=== PATIENT | female | born 1975 | race African-American/Black ===

== ENCOUNTER → 2019-08-07 09:01 | Outpatient (CLI) | payer BC, SELFPAY ==
--- NOTE | ~2019-08-07 | XR_ITS ---
EXAMINATION: XR chest 2V EXAM DATE: 08/07/2019 09:24 INDICATION: Left breast pain. TECHNIQUE: Frontal and lateral projections of the chest obtained and reviewed. There is no prior soniya dy for comparison. FINDINGS: The lungs are clear. There are no pleural effusions. The cardiomediastinal silhouette is within normal limits. There is no pneumothorax suspected. The bones and soft tissues are unremarkab le. IMPRESSION: No acute cardiopulmonary findings. Reviewed, dictated and finalized at location B. [employer]
== END ==
PROVIDERS: PCP Emergency Medicine; Visit Provider Emergency Medicine
DX: N64.4 Mastodynia (principal)
CPT/HCPCS: 71046

== ENCOUNTER 2020-10-03 08:29 | Outpatient (CLI) | payer BC, SELFPAY ==
--- NOTE | ~2020-10-03 | MM_ITS ---
EXAMINATION: MM screening [facility] BI w som HISTORY: Screening mammogram TECHNIQUE: Craniocaudal and mediolateral oblique 3-D tomosynthesis images were obtained and synthetic 2-D images were generated. CAD analysis was submitted and interpreted. COMPARISON: 07/17/2019, 02/10/2018, 01/30/2018 BREAST PARENCHYMAL COMPOSITION: There are scattered areas of fibroglandular density. FINDINGS: There are bilateral breast cysts with a waxing and waning appearance. There is no evidence of suspicious mass, calcification, or architectural distortion to suggest malignancy in either breast . There has been no suspicious interval change. IMPRESSION: 1. No mammographic evidence of malignancy. 2. Recommend routine screening mammography in one year. BI-RADS Category 2: Benign finding(s). Reviewed, dictated and finalized at location A.
== END 2020-10-03 08:30 | disposition home or self-care (01) ==
LOC: ANHIMG 08:33
PROVIDERS: PCP Emergency Medicine; Visit Provider Emergency Medicine
DX: Z12.31 Encounter for screening mammogram for malignant neoplasm of breast (principal)
CPT/HCPCS: 77063; 77067

== ENCOUNTER 2022-10-07 10:53 | Outpatient (CLI) | payer OTHER, SELFPAY ==
--- NOTE | ~2022-10-07 | XR_ITS ---
AP and lateral views of the right hip Clinical history: Pain Findings: No acute fracture or dislocation is seen. Osseous alignment is anatomic. The right hip join t and right SI joint are preserved. Soft tissues are unremarkable. Impression: No significant abnormality is seen. Reviewed, dictated and finalized at [facility]. Impression: No significant abnormality is seen.
--- NOTE | ~2022-10-07 | XR_ITS ---
Right Shoulder Technique: AP and axillary views were obtained. Clinical History: Pain Findings: No fracture or dislocation is seen. Osseous alignment is anatomic. The glenohumeral and acr omioclavicular joint spaces are preserved. Soft tissues are unremarkable. Impression: Unremarkable right shoulder radiographs. Reviewed, dictated and finalized at [facility]. Impression: Unremarkable right shoulder radiographs.
== END 2022-10-07 10:54 | disposition home or self-care (01) ==
LOC: ANHIMG 11:01
PROVIDERS: PCP Physician Assistant; Visit Provider Physician Assistant
DX: M25.551 Pain in right hip (principal); M25.511 Pain in right shoulder
CPT/HCPCS: 73030; 73502

== ENCOUNTER 2024-02-05 13:22 | Emergency (ER) | payer OTHER, SELFPAY ==
[2024-02-05] VITALS (10 sets, daily range): BP systolic 98–108; BP diastolic 67–76; PULSE 62–100; RESP 17–18; TEMP 38.2; O2SAT 98–100
--- NOTE | ~2024-02-05 | CT_ITS ---
CT abdomen pelvis w con Ordering provider: Carmelo Newell APRN History: 48 years Female with . abdomen pain /nausea/fever . Comparison: None. Technique: CT abdomen and pelvis with IV and without oral contrast. Automated exposure control and it erative reconstruction technique were employed. The dose-length product was 882.50 mGy-cm. 100 ML Omn ipaque 350 was given IV. Findings: VISUALIZED LOWER CHEST: Normal. UPPER ABDOMINAL ORGANS: Liver: Mild fat infiltration. Gallbladder: Normal. Spleen: Normal. Stomach/duodenum: Normal. Pancreas: Normal. Adrenals: Normal. Kidneys: Small cyst in the right kidney midpole. PELVIC ORGANS: The bladder is underfilled with thickened wall. Grossly enlarged uterus is seen. Fibro id is highly suggestive. Further evaluation and clinical correlation uterus measures 1.1 x 1.1x 12 cm . advised. BOWEL AND MESENTERY: Colon: No evidence of diverticulitis. No evidence of appendicitis.. Small Bowel: Normal. No obstruction. Peritoneum/mesentery: No free air or free fluid. No mesenteric lymphadenopathy. RETROPERITONEUM: Normal aorta. No retroperitoneal lymphadenopathy. MUSCULOSKELETAL: Superficial soft tissues: The superficial soft tissues are normal. Bones: Age appropriate degenerative changes of the spine. IMPRESSION: 1. No acute abdominal process with no evidence of appendicitis, diverticulitis or intestinal obstruc tion. 2. Grossly enlarged uterus with fibroid. Further evaluation and clinical correlation advised. Reviewed, dictated and finalized at location A. IMPRESSION: 1. No acute abdominal process with no evidence of appendicitis, diverticulitis or intestinal obstruction. 2. Grossly enlarged uterus with fibroid. Further evaluation and clinical corre lation advised.
--- NOTE | 2024-02-05 14:05 | ED.DIZZY ---
HPI - Dizziness General Chief Complaint: Dizziness Stated Complaint: abd pain Time Seen by Provider: 02/05/24 14:04 Source: patient Mode of arrival: ambulatory Limitations: no limitations History of Present Illness HPI Narrative: Cady is a 48-year-old female patient presenting to the ER today with complaints of generalized abdominal discomfort, weakness, fever, chills, body aches and dizziness for the past 3 days. She reports her pain being an 8/10 currently. She denies any URI symptoms or UTI symptoms. Her last bowel movement was 2 days ago. Is having some associated nausea. Took ibuprofen at 12:00 p.m. today. Denies any headache or blurry vision. Related Data Allergies Allergy/AdvReac Type Severity Reaction Status Date / Time No Known Allergies Allergy Verified 02/05/24 13:58 Review of Systems Review of Systems: Pertinent positives per HPI. Patient denies any rash, headache, visual changes, cough, runny nose, sore throat, shortness of breath, chest pain, palpitations, vomiting, diarrhea, constipation, or any urinary issues. PMFSH Family History Family History Unknown Hypertension Social History Social History Smoking status: Never smoker Alcohol intake: never Substance use type: does not use Living arrangements: with family Occupation/Education: occupation Additional occupation/education comments: Home/[employer] Gender identity (if verbalized by the patient): Female Comments At the time of my signature, I reviewed and agree with the nursing past medical, surgical, social, and family history. There is no relevant family history pertinent to the patient complaint. Exam Narrative: General: Well-developed, well nourished, in no apparent distress. Head: Normocephalic, atraumatic. Cardio: Regular rate and rhythm, s1 and s2 normal, no murmur appreciated. Resp: Clear to auscultation bilaterally, no rhonchi, rales, wheezing or rubs. Abdomen: Soft, pliable, bowel sounds present in all quadrants, non-tender to palpation, no organomegly, no CVAT tenderness. Musculoskeletal: No deformity, non-tender to palpation, grossly normal range of motion, muscle strength strong and equal, peripheral pulse strong, no edema, no cyanosis, normal gait and station Neuro: Alert and oriented x4 with normal speech, no focal deficits, cranial nerves I through XII intact, muscle strength 5 out of 5, sensation intact bilaterally. Course Course Emergency Course: Portions of this record may have been created with voice recognition software. Vital Signs Vital signs: Vital Signs Temperature 38.2 C H 02/05/24 13:54 Pulse Rate 100 02/05/24 13:54 Respiratory Rate 18 02/05/24 13:54 Blood Pressure 108/76 02/05/24 13:54 Pulse Oximetry 100 02/05/24 13:54 Oxygen Delivery Room Air 02/05/24 13:54 Temperature 38.2 C H 02/05/24 13:54 Pulse Rate 100 02/05/24 13:54 Respiratory Rate 18 02/05/24 13:54 Blood Pressure 108/76 02/05/24 13:54 Pulse Oximetry 100 02/05/24 13:54 Oxygen Delivery Room Air 02/05/24 13:54 Vital signs reviewed MDM - Dizziness MDM Narrative Medical decision making narrative: At the time of visit patient is resting comfortably on the exam table. Patient appears to be nontoxic. EKG: EKG shows normal sinus rhythm with a heart rate of 81 beats per minute. No ST elevation or depression Labs: CBC shows white blood cell count of 6.5, H&H of 10.6 and 34.7, platelet count is 278, chemistry shows sodium 133, potassium at 3.5, chloride 101, carbon dioxide of 18, BUN of 10, creatinine 0.9, GFR is greater than 60, glucose is 143, troponin less than 0.012, COVID, influenza, and RSV test were negative, urinalysis negative Diagnostics: CT abdomen pelvis with contrast shows no acute intra-abdominal process. Does show a large uterus with uter
--- NOTE | 2024-02-05 14:23 | ECG_ITS ---
Test Date: 2024-02-05 15:01:50 Measurements Intervals [place] Rate: 81 P: 37 [place]: 167 QRS: 22 QRSD: 84 T: 4 QT: 371 QTc: 431 Interpretive Statements SINUS RHYTHM VOLTAGE CRITERIA FOR LVH MINIMAL Q WAVES- HIGH LATERAL LEADS ST DEVIATION AND MODERATE T-WAVE ABNORMALITY, CONSIDER ANTERIOR ISCHEMIA BASELINE WANDER- IIIII, AVF, V3-V6 ABNORMAL ECG No previous ECG available for comparison Electronically Signed On 02-05-2024 15:11:59 CDT by Jimmy Ott D.O.
[2024-02-05 14:43] LABS: Basophils Percent Auto 0.3 % (0.2-1.2); Hematocrit 34.7 % (37.0-47.0); Hemoglobin 10.6 g/dL (12.0-15.0); Immature Granulocyte Absolute 0.04 K/mm3 (0.00-0.031); Immature Granulocyte Percent A 0.6 % (0-0.5); Lymphocytes Absolute Auto 1.06 K/mm3 (0.9-3.2); Lymphocytes Percent Auto 16.3 % (18.3-44.2); Mean Corpuscular HGB Conc 30.5 g/dl (32-36); Mean Corpuscular Hemoglobin 24.8 pg (26-34); Mean Corpuscular Volume 81.1 fl (80-100); Mean Platelet Volume 9.3 fl (7.4-10.4); Monocytes Absolute Auto 0.8 K/mm3 (0.1-0.6); Monocytes Percent Auto 11.5 % (2.6-8.5); Neutrophils Absolute Auto 4.6 K/mm3 (1.3-6.7); Neutrophils Percent Auto 71.3 % (45.5-73.1); Nucleated Red Blood Cells Perc 0.3 % (0.0-0.2); Platelet Count Result 278 k/mm3 (150-375); Red Blood Count 4.28 M/mm3 (4.2-5.4); Red Cell Distribution Width 16.2 % (11.5-14.5); White Blood Count 6.5 K/mm3 (4.5-10.0)
[2024-02-05 14:48] LABS: BEDSIDEPREGUCG Negative
[2024-02-05 14:50] LABS: Appearance Urine Clear (Clear); Bacteria Urine None Seen /hpf; Bilirubin Urine Negative (Negative); Blood Urine Negative (Negative); Color Urine Yellow (Yellow); Glucose Urine UA Negative (Negative); Ketones Urine Negative (Negative); Leukocyte Esterase Ur Negative LEU/UL (Negative); Nitrate Urine Negative (Negative); Non Pathogenic Casts 0-2; Protein Urine Trace mg/dL (Negative); Squamous Epithelial Cell Urine None Seen /hpf (Few); Urobilinogen Urine 0.2 mg/dL (<2.0); WBC Urine 0-5 /hpf (0-3)
[2024-02-05 14:55] LABS: Add Urine Microscopic? YES; Alanine Aminotransferase 32 U/L (6-35); Albumin Level 4.1 g/dL (3.5-5.1); Alkaline Phosphatase 68 U/L (38-126); Anion Gap 14 mmol/L (4-12); Aspartate Amino Transferase 29 U/L (14-36); Bilirubin,Total 0.8 mg/dL (0.2-1.3); Blood Urea Nitrogen 10 mg/dL (7-17); Calcium 8.6 mg/dL (8.4-10.2); Carbon Dioxide 18 mmol/L (22-30); Chloride 101 mmol/L (98-107); Estimated Glomerular Filt Rate > 60; Glucose 143 mg/dL (65-110); Potassium 3.5 mmol/L (3.4-5.0); Sodium 133 mmol/L (137-145)
[2024-02-05 14:56] LABS: Lipase 76 U/L (23-300)
[2024-02-05] MEDS: SODIUM CHLORIDE 0.9% IV 1,000 ML 999 ML IV CONT (15:07)
[2024-02-05] MEDS: ONDANSETRON INJ 4 MG/2 ML VIAL IV PUSH (15:07)
[2024-02-05 15:19] LABS: Influenza A QL RT-PCR Negative (Negative); Influenza B QL RT-PCR Negative (Negative); RSV RNA, RT-PCR Negative (Negative); SARS-CoV-2 RNA PCR Negative (Negative)
[2024-02-05 15:47] LABS: Troponin I < 0.012 ng/mL (0.000-0.034)
== END 2024-02-05 18:49 | disposition home or self-care (01) ==
PROVIDERS: Emergency Provider Nurse Practitioner Family; PCP Physician Assistant
DX: B34.9 Viral infection, unspecified (principal); E86.0 Dehydration; E87.1 Hypo-osmolality and hyponatremia; D64.9 Anemia, unspecified; D25.9 Leiomyoma of uterus, unspecified
CPT/HCPCS: 36415; 74177; 80053; 81001; 81025; 83690; 84484; 85025; 87637; 93005; 96361; 96374; 99284; J2405; J7030; Q9967

== ENCOUNTER 2024-02-09 21:31 | Emergency (ER) | payer OTHER, SELFPAY ==
--- NOTE | ~2024-02-09 | XR_ITS ---
Portable chest x-ray Comparison: 08/07/2019 Clinical History: Shortness of breath Findings: Lungs are clear, without focal consolidation or pleural effusion. Cardiomediastinal silho uette is stable. Bones and soft tissues are unremarkable. Impression: Clear lungs. Reviewed, dictated and finalized at location . Impression: Clear lungs.
--- NOTE | ~2024-02-09 | CT_ITS ---
Clinical Indication: Shortness of breath, chest pain CT Scan of the Chest with Contrast: Technique: Contiguous sections were acquired throughout the chest after intravenous administration of 100 cc of Omnipaque 350. Dose reduction technique was used on this scan by utilizing automated expos ure control and iterative reconstruction technique. The dose-length product (DLP) was 531.95 mGy-cm. Findings: There is no evidence of any significant mediastinal, hilar or axillary lymphadenopathy. There is no f illing defect in the pulmonary arterial tree to suggest pulmonary embolus. There is no evidence of ao rtic dissection or aneurysm. There is no evidence of pleural or pericardial effusion. The lungs are clear. No pulmonary nodules or infiltrates are noted. Images through the upper abdomen reveal no abnormalities. Impression: No evidence of pulmonary embolus, aortic dissection, or aortic aneurysm. Clear lungs. Reviewed, dictated and finalized at [facility]. Impression: No evidence of pulmonary embolus, aortic dissection, or aortic aneurysm. Clear lungs.
[2024-02-09 22:43] VITALS: BP 102/67; PULSE 82; RESP 20; TEMP 36.3; O2SAT 100
[2024-02-10] VITALS (31 sets, daily range): BP systolic 103–150; BP diastolic 52–100; PULSE 68–105; RESP 18–42; TEMP 36.6–37.9; O2SAT 98–100
--- NOTE | 2024-02-10 00:26 | ECG_ITS ---
Test Date: 2024-02-10 00:35:23 Measurements Intervals [place] Rate: 76 P: 40 SC: 175 QRS: 30 QRSD: 95 T: 20 QT: 381 QTc: 429 Interpretive Statements SINUS RHYTHM NONSPECIFIC T-WAVE ABNORMALITY ABNORMAL ECG Compared to ECG 02/05/2024 15:01:50 NO SIGNIFICANT CHANGE Electronically Signed On 02-10-2024 11:26:36 CDT by Ovidio Tristan M.D.
[2024-02-10 00:49] LABS: Basophils Percent Auto 0.2 % (0.2-1.2); Eosinophils Percent Auto 0.2 % (0-4.4); Hematocrit 27.9 % (37.0-47.0); Hemoglobin 8.8 g/dL (12.0-15.0); Immature Granulocyte Absolute 0.08 K/mm3 (0.00-0.031); Immature Granulocyte Percent A 1.7 % (0-0.5); Immature Platelet Fraction Pct 9.2 % (0.9-11.2); Lymphocytes Absolute Auto 1.62 K/mm3 (0.9-3.2); Lymphocytes Percent Auto 34.8 % (18.3-44.2); Mean Corpuscular HGB Conc 31.5 g/dl (32-36); Mean Corpuscular Hemoglobin 24.4 pg (26-34); Mean Corpuscular Volume 77.5 fl (80-100); Mean Platelet Volume 11.2 fl (7.4-10.4); Monocytes Absolute Auto 0.6 K/mm3 (0.1-0.6); Monocytes Percent Auto 13.3 % (2.6-8.5); Neutrophils Absolute Auto 2.3 K/mm3 (1.3-6.7); Neutrophils Percent Auto 49.8 % (45.5-73.1); Nucleated Red Blood Cells Perc 0.4 % (0.0-0.2); Red Cell Distribution Width 16.2 % (11.5-14.5); White Blood Count 4.7 K/mm3 (4.5-10.0)
[2024-02-10 00:59] LABS: INR 1.1; Lactic Acid Reflex 1.1 mmol/L (0.7-2.0); Prothrombin Time 14.4 Seconds (11.1-14.7)
[2024-02-10 01:00] LABS: Alanine Aminotransferase 26 U/L (6-35); Albumin Level 3.3 g/dL (3.5-5.1); Alkaline Phosphatase 59 U/L (38-126); Anion Gap 8 mmol/L (4-12); Aspartate Amino Transferase 30 U/L (14-36); Bilirubin,Total 1.1 mg/dL (0.2-1.3); Blood Urea Nitrogen 15 mg/dL (7-17); Calcium 7.8 mg/dL (8.4-10.2); Carbon Dioxide 24 mmol/L (22-30); Chloride 94 mmol/L (98-107); Estimated CRCL calculation 76 ml/min; Estimated Glomerular Filt Rate > 60; Glucose 109 mg/dL (65-110); Magnesium 2.1 mg/dL (1.6-2.3); Partial Thromboplastin Time 31.3 Seconds (22.3-36.8); Potassium 3.3 mmol/L (3.4-5.0); Sodium 126 mmol/L (137-145)
[2024-02-10 01:12] LABS: Troponin I < 0.012 ng/mL (0.000-0.034)
--- NOTE | 2024-02-10 01:12 | ED.GENADULT ---
HPI - General Adult General Chief complaint: Unspecified <DANIA Winter Last Filed: 02/10/24 19:54> Stated complaint: not feeling good <DANIA Winter Last Filed: 02/10/24 19:54> Time Seen by Provider: 02/10/24 00:23 <DANIA Winter Last Filed: 02/10/24 19:54> Source: patient and old records reviewed <DANIA Winter Last Filed: 02/10/24 19:54> Mode of arrival: ambulatory <DANIA Winter Last Filed: 02/10/24 19:54> Limitations: no limitations <DANIA Winter Last Filed: 02/10/24 19:54> History of Present Illness HPI narrative: Patient is a 48-year-old female who presents the ED with multiple complaints. Patient complains of dizziness, shortness of breath, nausea, body aches, headache, weakness, general malaise, decreased appetite. Patient recently traveled to [facility] from 01/16/2024 through 01/30/2024 and developed symptoms 2 days after return home. She traveled with her daughter who was confirmed to have malaria this week. Patient denies chest pain, known fevers. <DANIA Winter Last Filed: 02/10/24 19:54> Related Data Allergies/adverse reactions: Allergies Allergy/AdvReac Type Severity Reaction Status Date / Time No Known Allergies Allergy Verified 02/09/24 22:49 <DANIA Winter Last Filed: 02/10/24 19:54> Review of Systems Review of Systems: CONSTITUTIONAL: Denies fever, chills, or sweats. ENT: See HPI. CARDIOVASCULAR: Denies chest pain, palpitations, or edema. RESPIRATORY: See HPI. GASTROINTESTINAL: See HPI. MUSCULOSKELETAL: Reports myalgia. NEUROLOGIC: See HPI <DANIA Winter Last Filed: 02/10/24 19:54> All systems reviewed & are unremarkable except as noted in HPI and below <Anisa Landis PA-C - Last Filed: 02/10/24 19:54> [facility], [facility] Family History Family History: Family History Unknown Hypertension <Anisa Landis PA-C - Last Filed: 02/10/24 19:54> Social History Social History: Social History Smoking status: Never smoker Alcohol intake: never Substance use type: does not use Living arrangements: with family Occupation/Education: occupation Additional occupation/education comments: Home/[employer] Gender identity (if verbalized by the patient): Female <Anisa Landis PA-C - Last Filed: 02/10/24 19:54> Exam Narrative: GENERAL: Mildly ill appearing, obese with BMI of 35.7, non-toxic, in no acute distress. HEAD: Normocephalic, atraumatic. RESPIRATORY: Airway patent, respirations mildly tachypneic. Clear to auscultation bilaterally, no rales, rhonchi, wheezing. No significant focal lung sounds. CARDIOVASCULAR: Regular rate and rhythm without murmurs, rubs, or gallops. Peripheral pulses intact. ABDOMINAL: Soft, nontender, nondistended. Normoactive BS. MUSCULOSKELETAL: Moves all extremities. No gross deformities. SKIN: Warm, dry, normal color. NEURO: A&O X3. Speech clear. Cranial nerves II-XII grossly intact. Steady gait. No ataxic movements. PSYCHIATRIC: Appropriate mood and affect. Normal interaction. <Anisa Landis PA-C - Last Filed: 02/10/24 19:54> Course Course Emergency Course: Patient had parasites on peripheral blood smear. Discussed with ID pharmacy and will start her on oral antimalarials. Patient did receive a bed on my shift and was transferred. <John Thornton MD - Last Filed: 02/11/24 18:31> Vital Signs Vital signs: Vital Signs Temperature 97.3 F L 02/09/24 22:43 Pulse Rate 82 02/09/24 22:43 Respiratory Rate 20 02/09/24 22:43 Blood Pressure 102/67 02/09/24 22:43 Pulse Oximetry 100 02/09/24 22:43 Oxygen Delivery Room Air 02/09/24 22:43 Temperature 98.8 F 02/10/24 18:16 Puls
[2024-02-10 01:27] LABS: Influenza A QL RT-PCR Negative (Negative); Influenza B QL RT-PCR Negative (Negative); RSV RNA, RT-PCR Negative (Negative); SARS-CoV-2 RNA PCR Negative (Negative)
[2024-02-10 01:29] LABS: Add Urine Microscopic? YES; Appearance Urine Clear (Clear); Bacteria Urine None Seen /hpf; Bilirubin Urine Negative (Negative); Blood Urine 2+ (Negative); Color Urine Yellow (Yellow); Glucose Urine UA Negative (Negative); Hyaline Casts Urine Present /lpf; Ketones Urine Negative (Negative); Leukocyte Esterase Ur Negative LEU/UL (Negative); Need Manual Microscopic Reviewed; Nitrate Urine Negative (Negative); Protein Urine Trace mg/dL (Negative); RBC Urine 51-100 /hpf (0-2); Specific Grav Ur 1.008 (1.001-1.035); Squamous Epithelial Cell Urine None Seen /hpf (Few); WBC Urine 0-5 /hpf (0-3); pH Urine 5.5 (5.0-9.0)
[2024-02-10] MEDS: ONDANSETRON INJ 4 MG/2 ML VIAL IV PUSH (01:37)
[2024-02-10] MEDS: POTASSIUM CHLORIDE 20 MEQ ER TABLET 40 MEQ PO (01:37)
[2024-02-10] MEDS: SODIUM CHLORIDE 0.9% IV 1,000 ML 999 ML IV CONT ×2 (01:37)
--- NOTE | 2024-02-10 01:51 | PC.NURSE ---
2nd set of cultures sent to lab.
[2024-02-10 01:53] LABS: Platelet Count Result 89 k/mm3 (150-375)
[2024-02-10 01:54] LABS: Platelet Estimate Decreased (Adequate)
[2024-02-10 01:55] LABS: Anisocytosis 1+; Hypochromasia 1+; Schistocytes None Seen
[2024-02-10 02:27] LABS: Immature Reticulocyte Fraction 9.5 % (3.0-15.9); Reticulocyte Hemoglobin Conten 22.4 pg (28.2-36.6); Reticulocyte Percent 1.82 % (0.7-4.3); Reticulocytes Absolute 0.06 10^6/uL (0.02-0.10)
[2024-02-10 02:30] LABS: Fibrinogen 538 mg/dl (215-510)
[2024-02-10 02:55] LABS: Iron 16 ug/dL (37-170)
[2024-02-10 02:55] LABS: BEDSIDEPREGUCG Negative
--- NOTE | 2024-02-10 02:57 | PC.NURSE ---
dr adam @ [facility] accepting patient as high priority to medicine floor. Pt on waitlist.
[2024-02-10 03:15] LABS: Percent Iron Saturation 5 % (20-50)
[2024-02-10 03:45] LABS: Lactate Dehydrogenase 387 U/L (120-246)
[2024-02-10 04:07] LABS: Transferrin 228 mg/dL (206-381)
--- NOTE | 2024-02-10 08:26 | PC.NURSE ---
Patient states she gets her dialysis on Tuesday, Tuesday, Tuesday. Dr Thornton aware of this.
--- NOTE | 2024-02-10 10:38 | PC.NURSE ---
Patient requesting food tray before taking the medication.
[2024-02-10] MEDS: ACETAMINOPHEN 325 MG TABLET 650 MG PO ×2 (11:52→18:13)
--- NOTE | 2024-02-10 12:06 | PC.NURSE ---
Patient ambulated to the bathroom. Ambulates appropriately but slowly. Patient noted to be febrile and discussed with and got an order for tylenol Q6. Patient updated to plan with tylenol and monitoring temperature
--- NOTE | 2024-02-10 12:26 | P.PNINF_ITS ---
Pharmacy ID Consult - Stewardship Interventions Type of Interventions: Escalation, Labs - micro, Labs - non micro Pharmacy ID Note: Subjective Pharmacy was consulted by Vonda Landis regarding infectious diseases for Cady Rodriguez. Cady Rodriguez is a 48 year old F with concerns regarding concern for malaria. Background The patient is currently receiving Coartem 4 tablets twice daily in a 3-day course (day 1). The patient's PMH includes recent travel to [facility] and proper malaria chemoprophylaxis was not mentioned. Additionally, patient's daughter currently also being treated for malaria with similar symptoms. Presence of malaria likely via a review of a peripheral smear via pathologist review - however objective assessment of parasitemia is to be done at [facility] - though will likely face significant lag time at this reference lab. Laboratory Tests 02/10/24 02/10/24 00:39 01:42 WBC 4.7 Hgb 8.8 L Plt Count 89 L D Creatinine 1.00 Lactic Acid 1.1 Malaria Smear Pending Assessment/Recommendation/Discussion Spoke briefly with Daniel Thornton of the consulting provider's service. Presence of malaria and symptoms reveal the need to treat. As the patient does not appear to have severe malaria (see excerpt from CDC below while noting inability to assess percent parasitemia at this time but test is pending), and patient presents with malaria of unknown species with unknown chloroquine resistance from a malaria endemic region outside of [place] of the [facility], [place], or the [place], Coartem was started per recommended dosing. Lab monitoring with CBC/CMP/Malaria Smears/Lactate Dehydrogenase was ordered daily per discussion with provider. Transfer to [facility] is pending. Continue to follow patient for anemias, malarial cyclic fever pattern, and signs of severe infection as mentioned below and others. However, patients who have one or more of the following clinical criteria?impaired consciousness/coma, severe anemia (hemoglobin <7 g/dL), acute kidney injury, acute respiratory distress syndrome, circulatory collapse/shock, disseminated intravascular coagulation, acidosis, jaundice (along with at least one other sign of severe malaria)?and/or percent parasitemia of [greater than or equal to] 5%. Thank you for the interesting consult. Will continue to follow. Catarino Mike, PharmD Infectious Disease/Antimicrobial Stewardship Pharmacist 02/10/24; 1226 WBC 4.7 K/mm3 (4.5-10.0) 02/10/24 00:39 Creatinine 1.00 mg/dL (0.7-1.0) 02/10/24 00:39 Estim Creat Clear Calc 76 ml/min 02/10/24 00:39
--- NOTE | 2024-02-10 14:29 | PC.NURSE ---
1306- [facility] transfer center called for a patient update - updated vital signs, and patient condition communicated. stated that it could be days before a room was available and that maybe should be attempting to get on lists elsewhere 1350- bed assignment for [facility] given 1407- Report called to [facility], spoke with Soo MORROW and answered any questions. Currently waiting transport. patient updated to plan of care.
[2024-02-13 15:14] LABS: Haptoglobin 82 mg/dL (43-212)
== END 2024-02-10 18:39 | disposition short-term general hospital (02) ==
PROVIDERS: Emergency Provider Physician Assistant; PCP Physician Assistant
DX: R53.1 Weakness (principal); E87.1 Hypo-osmolality and hyponatremia; E87.6 Hypokalemia; D69.6 Thrombocytopenia, unspecified; D64.9 Anemia, unspecified; R31.9 Hematuria, unspecified; Z20.822 Contact with and (suspected) exposure to COVID-19; R94.31 Abnormal electrocardiogram [ECG] [EKG]
CPT/HCPCS: 36415; 71045; 71275; 80053; 81001; 81025; 82247; 82248; 82728; 83010; 83540; 83550; 83605; 83615; 83735; 84466; 84484; 85025; 85046; 85055; 85380; 85384; 85610; 85730; 87040; 87207; 87637; 93005; 96361; 96374; 99285; A9270; J2405; J7030; Q9967

== ENCOUNTER 2024-08-01 12:49 | Outpatient (CLI) | payer OTHER, SELFPAY ==
[2024-08-01 14:30] LABS: Basophils Percent Auto 0.8 % (0.2-1.2); Eosinophils Absolute Auto 0.1 K/mm3 (0-0.3); Eosinophils Percent Auto 3.7 % (0-4.4); Hemoglobin 10.5 g/dL (12.0-15.0); Immature Granulocyte Absolute 0.01 K/mm3 (0.00-0.031); Immature Granulocyte Percent A 0.3 % (0-0.5); Lymphocytes Absolute Auto 2.32 K/mm3 (0.9-3.2); Lymphocytes Percent Auto 61.1 % (18.3-44.2); Mean Corpuscular HGB Conc 29.2 g/dl (32-36); Mean Corpuscular Hemoglobin 25.4 pg (26-34); Mean Platelet Volume 9.9 fl (7.4-10.4); Monocytes Absolute Auto 0.3 K/mm3 (0.1-0.6); Monocytes Percent Auto 7.4 % (2.6-8.5); Neutrophils Percent Auto 26.7 % (45.5-73.1); Platelet Count Result 512 k/mm3 (150-375); Red Blood Count 4.14 M/mm3 (4.2-5.4); Red Cell Distribution Width 23.3 % (11.5-14.5); Reticulocyte Hemoglobin Conten 29.3 pg (28.2-36.6); Reticulocytes Absolute 0.06 10^6/uL (0.02-0.10); White Blood Count 3.8 K/mm3 (4.5-10.0)
[2024-08-01 16:12] LABS: Iron 69 ug/dL (37-170)
[2024-08-01 16:21] LABS: Percent Iron Saturation 24 % (20-50)
[2024-08-01 16:22] LABS: Alanine Aminotransferase 36 U/L (6-35); Albumin Level 4.4 g/dL (3.5-5.1); Alkaline Phosphatase 70 U/L (38-126); Anion Gap 10 mmol/L (4-12); Aspartate Amino Transferase 31 U/L (14-36); Bilirubin,Total 0.4 mg/dL (0.2-1.3); Blood Urea Nitrogen 11 mg/dL (7-17); Calcium 9.2 mg/dL (8.4-10.2); Carbon Dioxide 25 mmol/L (22-30); Chloride 103 mmol/L (98-107); Estimated Glomerular Filt Rate > 60; Glucose 88 mg/dL (65-110); Potassium 3.8 mmol/L (3.4-5.0); Sodium 138 mmol/L (137-145)
[2024-08-01 16:35] LABS: Hypochromasia 1+; Platelet Estimate Slightly Increased (Adequate); Schistocytes None Seen
[2024-08-01 16:36] LABS: Anisocytosis 1+
[2024-08-01 17:24] LABS: Folic Acid 13.6 ng/mL (2.76->20)
== END 2024-08-01 12:50 | disposition home or self-care (01) ==
LOC: ANHLAB 12:51
PROVIDERS: PCP Physician Assistant; Visit Provider Internal Medicine Medical Oncology
DX: D50.0 Iron deficiency anemia secondary to blood loss (chronic) (principal)
CPT/HCPCS: 36415; 80053; 82607; 82728; 82746; 83540; 83550; 85025; 85046

== ENCOUNTER 2025-01-02 12:13 | Outpatient (CLI) | payer OTHER, SELFPAY ==
[2025-01-02 12:48] LABS: Basophils Percent Auto 0.5 % (0.2-1.2); Eosinophils Absolute Auto 0.2 K/mm3 (0-0.3); Eosinophils Percent Auto 2.7 % (0-4.4); Hematocrit 35.9 % (37.0-47.0); Hemoglobin 10.9 g/dL (12.0-15.0); Immature Granulocyte Absolute 0.01 K/mm3 (0.00-0.031); Immature Granulocyte Percent A 0.2 % (0-0.5); Lymphocytes Absolute Auto 2.69 K/mm3 (0.9-3.2); Lymphocytes Percent Auto 45.7 % (18.3-44.2); Mean Corpuscular HGB Conc 30.4 g/dl (32-36); Mean Corpuscular Hemoglobin 26.2 pg (26-34); Mean Corpuscular Volume 86.3 fl (80-100); Monocytes Absolute Auto 0.5 K/mm3 (0.1-0.6); Monocytes Percent Auto 7.8 % (2.6-8.5); Neutrophils Absolute Auto 2.5 K/mm3 (1.3-6.7); Neutrophils Percent Auto 43.1 % (45.5-73.1); Platelet Count Result 324 k/mm3 (150-375); Red Blood Count 4.16 M/mm3 (4.2-5.4); Red Cell Distribution Width 13.2 % (11.5-14.5); White Blood Count 5.9 K/mm3 (4.5-10.0)
[2025-01-02 13:41] LABS: Anion Gap 7 mmol/L (4-12); Blood Urea Nitrogen 10 mg/dL (7-17); Calcium 9.2 mg/dL (8.4-10.2); Carbon Dioxide 27 mmol/L (22-30); Chloride 104 mmol/L (98-107); Estimated Glomerular Filt Rate > 60; Glucose 104 mg/dL (65-110); Potassium 3.8 mmol/L (3.4-5.0); Sodium 138 mmol/L (137-145)
[2025-01-02 15:56] LABS: Iron 53 ug/dL (37-170)
[2025-01-02 16:06] LABS: Percent Iron Saturation 15 % (20-50)
[2025-01-02 16:33] LABS: Ferritin 7.63 ng/mL (6.24-137)
[2025-01-02 17:12] LABS: Folic Acid 16.5 ng/mL (2.76->20)
[2025-01-05 13:48] LABS: Soluble Transferrin Receptor 2.12 mg/L (0.76-1.76)
== END 2025-01-02 12:14 | disposition home or self-care (01) ==
PROVIDERS: PCP Physician Assistant; Visit Provider Internal Medicine Hematology & Oncology
DX: D64.9 Anemia, unspecified (principal); I10 Essential (primary) hypertension
CPT/HCPCS: 36415; 80048; 82607; 82728; 82746; 83540; 83550; 84238; 85025